=== PATIENT | male | born 1970 | race Caucasian/White ===

== ENCOUNTER 2017-08-04 11:49 | Emergency (ER) | payer MEDICAID ==
[~2017-08-04] VITALS: Ht 160 cm; Wt 67.0 kg
[~2017-08-04 11:49] MED LIST: CYCL-319 PO; GLIP5TAB13 PO; IBUP-1542 PO; LISI-313 PO; METF500T4 PO; OXYC-209 PO
[2017-08-04 11:53] VITALS: Ht 160 cm; Wt 67.0 kg
[2017-08-04] MEDS ORDERED: MECLIZINE 12.5 MG TAB PO ONE (15:30)
--- NOTE | 2017-08-04 16:35 | RADRPT ---
PROCEDURE: CT Brain without contrast. CLINICAL INDICATION: Dizziness TECHNIQUE: A CT of the brain was performed on a [employer] 64-slice CT scanner utilizing axial imaging from the skull base through the vertex without IV contrast. Multiplanar reformatted images were made. Images were reviewed on a PACS workstation. The CTDIvol is 44.52 mGy and the DLP is 72 0.23 mGycm. One of the following 3 does reduction techniques were used during this CT examination: 1) Automated exposure control 2) Adjustment of the mA +/- kV according to patient size or 3) Use of iterative reconstruction technique COMPARISON: 07/06/[address] FINDINGS: There is no intracranial hemorrhage, mass effect, or midline shift. No extra-axial fluid collection is seen. The ventricles and sulci are normal in size and configuration. The density of the brain is normal, and the chi white matter differentiation appears well-preserved. Mild vascular calcificat ions are present of the bilateral intracranial internal carotid arteries. The visualized scalp and calvarium are normal. The orbits are remarkable for the presence of a right orbital mesh graft for previously noted orbital floor and medial wall fractures. The bilateral glob es and lenses are intact. The bilateral paranasal sinuses demonstrate chronic sequela of bilateral m edial blowout fractures and right orbital floor fracture. The bilateral mastoid air cells and middle ear cavities are clear. IMPRESSION: 1. No evidence of acute intracranial hemorrhage, infarcts, or acute intracranial pathology. 2. Healed sequela of chronic fractures of the right orbital floor in the bilateral medial orbits. 3. Mild atherosclerotic vascular disease RPTAT: HDC .Kayce Stephenson MD, Date Time Electronically viewed and signed by .Kayce Stephenson MD, MD on 08/04/2017 16:35 .C/
[2017-08-04] MEDS ORDERED: LISI10TA2 PO (16:57)
[2017-08-04] MEDS ORDERED: GLIP5TAB13 PO (16:57)
[2017-08-04] MEDS ORDERED: METF1000 PO (16:57)
[2017-08-04] MEDS ORDERED: ATOR40TA68 PO (16:58)
[2017-08-04] MEDS ORDERED: MECL12.574 PO (18:05)
--- NOTE | 2017-08-04 18:15 | ERD ---
ER Documentation Chief Complaint Date/Time DATE: 08/04/17 TIME: 18:06 Chief Complaint DIZZINESS,NAUSEA,LIGHT HEADED, ONSET YESTERDAY HPI This is a 46-year-old male who is complaining of 1 day of spinning sensation. The patient states started rapidly yesterday all of a sudden and he states that when he walks or moves his head he will start to spin like he is drunk. He states that if he remains still the symptoms go away. No blurry vision no numbness weakness in extremities. He does complain of a mild occipital headache but no trauma. No no vomiting but does get nauseated because the spinning can get severe. No recent illness. ROS All systems reviewed and are negative except as per history of present illness. Medications Home Meds Active Scripts Meclizine Hcl* (Antivert*) 12.5 Mg Tab, 25 MG PO Q6H Y for DIZZINESS, #20 TAB Prov:BROOKE MCMANUS DO 08/04/17 Reported Medications Atorvastatin* (Atorvastatin*) 40 Mg Tablet, 40 MG PO QHS, #30 TAB 08/04/17 Metformin Hcl* (Metformin Hcl*) 1,000 Mg Tablet, 1000 MG PO WITH BREAKFAST DINNE , #60 TAB 08/04/17 Lisinopril* (Lisinopril*) 10 Mg Tablet, 10 MG PO DAILY, #30 TAB 08/04/17 Glipizide* (Glipizide*) 5 Mg Tablet, 5 MG PO AC BREAKFAST DINNER, TAB 08/04/17 Discontinued Reported Medications Lisinopril* (Lisinopril*) Unknown Strength Tablet, PO DAILY, #30 TAB 07/30/16 Glipizide* (Glipizide*) Unknown Strength Tablet, PO AC BREAKFAST DINNER, TAB 07/30/16 Metformin* (Glucophage*) Unknown Strength Tab, PO BID, #20 TAB 07/30/16 Discontinued Scripts Ibuprofen* (Motrin*) 600 Mg Tab, 600 MG PO Q6H Y for PAIN AND OR ELEVATED TEMP, #30 TAB Prov:RHODA ESCOBAR NP 07/30/16 Cyclobenzaprine Hcl* (Cyclobenzaprine Hcl*) 10 Mg Tablet, 10 MG PO TID, #30 TAB Prov:RHODA ESCOBAR NP 07/30/16 Oxycodone HCl/Acetaminophen (Percocet 10-325 mg Tablet) 1 Each Tablet, 1 EACH PO Q6, #30 TAB Prov:LUZRHODA RICKY Anthony NP 07/30/16 Allergies Allergies: Coded Allergies: No Known Allergy (Unverified , 08/04/17) PMhx/Soc History of Surgery: Yes (RT EYE) Anesthesia Reaction: No Hx Neurological Disorder: No Hx Respiratory Disorders: No Hx Cardiac Disorders: No Hx Psychiatric Problems: No Hx Miscellaneous Medical Probl: Yes (diabetes) Hx Alcohol Use: Yes (occasional) Hx Substance Use: No Hx Tobacco Use: Yes Smoking Status: Current every day smoker FmHx Family History: No coronary disease Physical Exam Vitals Vital Signs Date Time Temp Pulse Resp B/P Pulse Ox O2 Delivery O2 Flow Rate FiO2 08/04/17 11:53 98.2 98 18 176/112 99 Physical Exam Const: Well-developed, well-nourished Head: Atraumatic, normocephalic Eyes: Normal Conjunctiva, PERRLA, EOMI, normal sclera, no nystagmus ENT: Normal External Ears, Nose and Mouth, moist mucus membranes. Neck: Full range of motion. No meningismus, no lymphadenopathy. Resp: Clear to auscultation bilaterally, no wheezing, rhonchi, rales Cardio: Regular rate and rhythm, no murmurs, S1 S2 present Abd: Soft, non tender x 4, non distended. Normal bowel sounds, no guarding or rebound, no pulsitile abdominal masses or bruits Skin: No petechiae or rashes, no ecchymosis , no maculopapular rash Back: No midline or flank tenderness Ext: No cyanosis, or edema, FROM x 4, normal inspection, neurovascularly intact x 4 Neur: Awake and alert, STR 5/5 x 4, sensation intact x 4, no focal findings, cerebellum intact, positive Hallpike Psych: Normal Mood and Affect Results 24 hrs Current Medications Medications (Trade) Dose Ordered Sig/Neto Route PRN Reason Start Time Stop Time Status Last Admin Dose Admin Meclizine HCl (Antivert) 25 mg ONCE ONCE PO 08/04/17 15:30 08/04/17 15:31 DC 08/04/17 15:26 Procedures/MDM PROCEDURE: CT Brain without contrast. CLINICAL INDICATION: Dizziness TECHNIQUE: A CT of the brain was performed on a [employer] 64-slice CT scanner utilizing axial imaging from the skull base through the vertex without IV contrast. Multiplanar reformatted images were made. Images were reviewed on a PACS workstation. The CTDIvol is 44.52 mGy and the DLP is 720.23 mGycm. One of the following 3 does reduction techniques were used during this CT examination: 1) Automated exposure control 2) Adjustment of the mA +/- kV according to patient size or 3) Use of iterative reconstruction technique COMPARISON: 07/06/[address] FINDINGS: There is no intracranial hemorrhage, mass effect, or midline shift. No extra- axial fluid collection is seen. The ventricles and sulci are normal in size and configuration. The density of the brain is normal, and the chi white matter differentiation appears well-preserved. Mild vascular calcifications are present of the bilateral intracranial internal carotid arteries. The visualized scalp and calvarium are normal. The orbits are remarkable for the presence of a right orbital mesh graft for previously noted orbital floor and medial wall fractures. The bilateral globes and lenses are intact. The bilateral paranasal sinuses demonstrate chronic sequela of bilateral medial blowout fractures and right orbital floor fracture. The bilateral mastoid air cells and middle ear cavities are clear. IMPRESSION: 1. No evidence of acute intracranial hemorrhage, infarcts, or acute intracranial pathology. 2. Healed sequela of chronic fractures of the right orbital floor in the bilateral medial orbits. 3. Mild atherosclerotic vascular disease RPTAT: HDC .Kayce Stephenson MD, Date Time Electronically viewed and signed by .Kayce Stephenson MD, MD on 08/04/2017 16: 35 .C/ CC: BROOKE MCMANUS DO Her Antivert the patient feels much better. The patient presents as if he has peripheral vertigo. No evidence of any pathology on his CAT scan of brain. We will discharge home with Antivert 25mg Departure Diagnosis: Primary Impression: Vertigo Condition: Stable Patient Instructions: Vertigo, Unspecified BROOKE MCMANUS DO Aug 04, 2017 18:15
[2017-08-04 18:18] VITALS: BP 154/92; PULSE 89; RESP 17; TEMP 97.9
== END 2017-08-04 18:19 | disposition home or self-care (01) ==
LOC: E/R 11:49
DX: R42 Dizziness and giddiness (principal); E11.9 Type 2 diabetes mellitus without complications; F17.210 Nicotine dependence, cigarettes, uncomplicated; Z79.84 Long term (current) use of oral hypoglycemic drugs
CPT/HCPCS: 70450; Z7502; Z7610